=== PATIENT | male | born 1995 | race Caucasian/White ===

== ENCOUNTER 2021-03-08 12:29 | Emergency (ER) | payer MEDICAID ==
[~2021-03-08] VITALS: Ht 170.2 cm; Wt 81.6 kg
[2021-03-08 12:46] VITALS: BP_SYST 142
[2021-03-08] MEDS ORDERED: ONDANSETRON HCL 4 MG/2 ML VIAL IVP ONE (13:45)
[2021-03-08] MEDS ORDERED: MORPHINE 4 MG INJ. 4 MG/ML VIAL IVP ONE (13:45)
[2021-03-08] MEDS ORDERED: ED NON STOCK ORDER 1 EA MISC IV ONE (14:15)
[2021-03-08] MEDS ORDERED: MIDAZOLAM HCL 5 MG/5 ML VIAL IVP ONE (14:15)
[2021-03-08] MEDS ORDERED: KETAMINE HCL 500 MG/10 ML VIAL ONE (14:22)
[2021-03-08 16:08] VITALS: BP_SYST 142
== END 2021-03-08 16:08 | disposition home or self-care (01) ==
LOC: SED 12:29
DX: S43.004A Unspecified dislocation of right shoulder joint, initial encounter (principal); X50.0XXA Overexertion from strenuous movement or load, initial encounter; Y93.I9 Activity, other involving external motion; Y92.89 Other specified places as the place of occurrence of the external cause; Y99.8 Other external cause status
CPT/HCPCS: 23650; 73020; 73030; 96374; 96375; 99285; J2250; J2270; J2405